=== PATIENT | female | born 1975 | race Caucasian/White ===

== ENCOUNTER → 2017-04-26 14:12 | Outpatient (CLI) | payer BC, SELFPAY ==
[2017-05-01 14:23] LABS: HPV Reflexed? NOT INDICATED
== END ==
PROVIDERS: Family Provider Family Medicine; PCP Family Medicine; Visit Provider Obstetrics & Gynecology
DX: Z12.4 Encounter for screening for malignant neoplasm of cervix (principal)
CPT/HCPCS: 88175; G0145

== ENCOUNTER → 2017-05-31 12:31 | Outpatient (CLI) | payer BC, SELFPAY ==
--- NOTE | 2017-05-31 12:34 | BI_ITS ---
MAMMOGRAPHY - BILATERAL SCREENING REASON FOR EXAM: Female, 42 years old. Routine annual screening examination. PERTINENT HISTORY: Aunt with breast cancer. TECHNIQUE: Digital bilateral breast thuan (3D mammographic acquisition) in the CC and MLO projections. 2-D mediolateral oblique (MLO) and craniocaudad (CC) views of both breasts were obtained. CAD: Full Field Digital Mammography with Computer Added Detection was performed. COMPARISON: Comparison is made with prior study dated November 06, 2015. FINDINGS: Breast Composition: The breasts are heterogeneously dense, which may obscure small masses. There are no dominant masses or suspicious calcifications. No other significant abnormalities are identified. There has been no significant change since the prior study. BI/SCREENING MAMM (CAD), BILAT IMPRESSION: Stable bilateral screening mammogram. Yearly follow-up mammogram recommended. (A) ASSESSMENT CATEGORY: BIRADS Category 1: Negative. A letter regarding these results will be sent to the patient by the facility within 30 days. Approximately 10% of breast cancers are not detected by mammography. A normal mammogram should not delay biopsy of a clinically suspicious abnormality. [id number] Electronically Signed: Theodore Duran MD at 15:36 EDT Tel [phone], Service support ,
== END ==
PROVIDERS: Family Provider Family Medicine; PCP Family Medicine; Visit Provider Obstetrics & Gynecology
DX: Z12.31 Encounter for screening mammogram for malignant neoplasm of breast (principal)
CPT/HCPCS: 77063; 77067

== ENCOUNTER → 2018-05-02 15:47 | Outpatient (CLI) | payer BC, SELFPAY ==
[2018-05-09 14:43] LABS: HPV Reflexed? NOT INDICATED
== END ==
PROVIDERS: Family Provider Family Medicine; PCP Family Medicine; Referring Provider Obstetrics & Gynecology; Visit Provider Obstetrics & Gynecology
DX: Z12.4 Encounter for screening for malignant neoplasm of cervix (principal)
CPT/HCPCS: 88175; G0145

== ENCOUNTER → 2018-06-06 13:49 | Outpatient (CLI) | payer BC, SELFPAY ==
--- NOTE | 2018-06-06 13:50 | BI_ITS ---
MAMMOGRAPHY - BILATERAL SCREENING REASON FOR EXAM: Female, 43 years old. Routine annual screening examination. PERTINENT HISTORY: Aunt with breast cancer. TECHNIQUE: Digital bilateral breast thuan (3D mammographic acquisition) in the CC and MLO projections. 2-D mediolateral oblique (MLO) and craniocaudad (CC) views of both breasts were obtained. CAD: Full Field Digital Mammography with Computer Added Detection was performed. COMPARISON: Comparison is made with prior study dated May 31, 2017 and November 06, 2015. FINDINGS: Breast Composition: The breasts are heterogeneously dense, which may obscure small masses. There are no dominant masses or suspicious calcifications. No other significant abnormalities are identified. There has been no significant change since the prior study. BI/SCREENING MAMM (CAD), BILAT IMPRESSION: Stable bilateral screening mammogram. Yearly follow-up mammogram recommended. (A) ASSESSMENT CATEGORY: BIRADS Category 1: Negative. A letter regarding these results will be sent to the patient by the facility within 30 days. Approximately 10% of breast cancers are not detected by mammography. A normal mammogram should not delay biopsy of a clinically suspicious abnormality. [id number] Electronically Signed: Theodore Duran, at 15:09 EDT , Service support ,
== END ==
PROVIDERS: Family Provider Family Medicine; PCP Family Medicine; Referring Provider Obstetrics & Gynecology; Visit Provider Obstetrics & Gynecology
DX: Z12.31 Encounter for screening mammogram for malignant neoplasm of breast (principal)
CPT/HCPCS: 77063; 77067

== ENCOUNTER → 2019-10-23 09:01 | Outpatient (CLI) | payer BC, SELFPAY ==
--- NOTE | 2019-10-23 09:03 | BI_ITS ---
MAMMOGRAPHY - BILATERAL SCREENING REASON FOR EXAM: Female, 44 years old. Routine annual screening examination. PERTINENT HISTORY: Aunt with breast cancer. TECHNIQUE: Digital bilateral breast sal (3D mammographic acquisition) in the CC and MLO projections. 2-D mediolateral oblique (MLO) and craniocaudad (CC) views of both breasts were obtained. CAD: Full Field Digital Mammography with Computer Added Detection was performed. COMPARISON: Comparison is made with prior study dated 06/06/2018 and 05/31/2017. FINDINGS: Breast Composition: The breasts are heterogeneously dense, which may obscure small masses. There are no dominant masses or suspicious calcifications. Stable small benign-appearing bilateral axillary lymph nodes. No other significant abnormalities are identified. There has been no significant change since the prior study. BI/SCREEN MAMM (CAD) W/SAL BILAT IMPRESSION: Stable bilateral screening mammogram. Yearly follow-up mammogram recommended. (A) ASSESSMENT CATEGORY: BIRADS Category 2: Benign. A letter regarding these results will be sent to the patient by the facility within 30 days. Approximately 10% of breast cancers are not detected by mammography. A normal mammogram should not delay biopsy of a clinically suspicious abnormality. [id number] Electronically Signed: Theodore Duran, at 10:11 EDT , Service support ,
== END ==
PROVIDERS: PCP Family Medicine; Referring Provider Obstetrics & Gynecology; Visit Provider Obstetrics & Gynecology
DX: Z12.31 Encounter for screening mammogram for malignant neoplasm of breast (principal)
CPT/HCPCS: 77063; 77067

== ENCOUNTER 2021-03-12 14:31 | Outpatient (CLI) | payer SELFPAY ==
[2021-03-19 19:53] LABS: HPV APTIMA, High Risk Negative (Negative)
== END 2021-03-12 23:59 | disposition short-term general hospital (02) ==
LOC: LABSPEC 14:45
PROVIDERS: PCP Family Medicine; Visit Provider Student in an Organized Health Care Education/Training Program
DX: Z12.4 Encounter for screening for malignant neoplasm of cervix (principal)
CPT/HCPCS: 87624; 88175; G0145

== ENCOUNTER 2021-03-24 13:36 | Outpatient (CLI) | payer SELFPAY ==
--- NOTE | 2021-03-24 13:43 | BI_ITS ---
MAMMOGRAPHY - BILATERAL SCREENING REASON FOR EXAM: Female, 45 years old. Routine annual screening examination. PERTINENT HISTORY: Aunt with breast cancer. TECHNIQUE: Digital bilateral breast sal (3D mammographic acquisition) in the CC and MLO projections. 2-D mediolateral oblique (MLO) and craniocaudad (CC) views of both breasts were obtained. CAD: Full Field Digital Mammography with Computer Added Detection was performed. COMPARISON: Comparison is made with prior study dated 10/23/2019 and 06/06/2018. FINDINGS: Breast Composition: The breasts are heterogeneously dense, which may obscure small masses. There are no dominant masses or suspicious calcifications. No other significant abnormalities are identified. There has been no significant change since the prior study. BI/SCRN MAMM (CAD)W/SAL BILAT IMPRESSION: Stable bilateral screening mammogram. Yearly follow-up mammogram recommended. (A) ASSESSMENT CATEGORY: BIRADS Category 1: Negative. A letter regarding these results will be sent to the patient by the facility within 30 days. Approximately 10% of breast cancers are not detected by mammography. A normal mammogram should not delay biopsy of a clinically suspicious abnormality. [id number] Electronically Signed: Theodore Duran MD at 14:20 EST ,
== END 2021-03-24 23:59 | disposition short-term general hospital (02) ==
PROVIDERS: PCP Family Medicine; Visit Provider Student in an Organized Health Care Education/Training Program
DX: Z12.31 Encounter for screening mammogram for malignant neoplasm of breast (principal); Z80.3 Family history of malignant neoplasm of breast
CPT/HCPCS: 77063; 77067

== ENCOUNTER → 2024-06-19 | Outpatient (CLI) | payer SELFPAY ==
[2024-06-24 16:08] LABS: HPV APTIMA, High Risk Negative (Negative)
== END | disposition home or self-care (01) ==
PROVIDERS: PCP Family Medicine; Referring Provider Family Medicine; Visit Provider Family Medicine
DX: Z12.4 Encounter for screening for malignant neoplasm of cervix (principal)
CPT/HCPCS: 88175; G0145

== ENCOUNTER → 2024-07-03 | Outpatient (CLI) | payer SELFPAY ==
--- NOTE | 2024-07-03 15:40 | BI_ITS ---
EXAM: SCRN MAMM (CAD)W/SAL BILAT DATE: 07/03/2024 CLINICAL HISTORY: F, Age 49 y/o , SCREENING BREAST CANCER RISK ASSESSMENT: Not reported TECHNIQUE: Bilateral screening digital breast tomosynthesis with 2D and 3D images. Computer aided detection. COMPARISON: Prior exam(s) were compared FINDINGS: TISSUE DENSITY: The breast tissue is heterogenously dense, which may obscure small masses. Bilateral Breast Mammographic Findings: No suspicious masses, calcifications or other abnormalities are identified. BI/SCRN MAMM (CAD)W/SAL BILAT IMPRESSION: OVERALL FINAL ASSESSMENT: BIRADS 1 NEGATIVE RECOMMENDATION: Routine annual follow-up in 1 Year A letter with findings and recommendations will be mailed to the patient. Reading Location: [id number]
== END | disposition home or self-care (01) ==
PROVIDERS: PCP Family Medicine
DX: Z12.31 Encounter for screening mammogram for malignant neoplasm of breast (principal)
CPT/HCPCS: 77063; 77067

== ENCOUNTER 2024-10-11 11:05 | Day surgery (SDC) | payer SELFPAY ==
[2024-10-11] VITALS (7 sets, daily range): BP systolic 85–100; BP diastolic 58–80; PULSE 56–88; RESP 14–18; TEMP 36.1–36.6; O2SAT 94–100; BMI 22.8
--- NOTE | 2024-10-11 11:21 | PCM.HP.STD ---
HPI - General General Date of Admission: 10/11/24 Date of Service: 10/11/24 HPI Narrative LILLIAM ARTEAGA, is a 49 F who presents for a Chief Complaint: screening colonoscopy Pt has no GI symptoms. She has a bm sporadically typically every couple days which has always been her normal. She has never had a colonoscopy before. She has two cousins who of colon cancer in their 30s. [facility] Medical History Wears glasses Non-smoker History of edema Allergy/AdvReac Type Severity Reaction Status Date / Time No Known Allergies Allergy Verified 10/10/24 15:48 Surgical History Hx of skin graft Hx of foot surgery Social History Smoking Status: Never smoker ROS Constitutional Constitutional: Denies fatigue, fever(s), poor appetite, weight gain or weight loss Gastrointestinal Gastrointestinal: Denies belching, bloating, change in bowel habits, change in stool character, chewing difficulty, coffee ground emesis, constipation, cramping, diarrhea, dyspepsia, dysphagia, early satiety, excessive flatus, fecal incontinence, heartburn, hematemesis, hematochezia, hemorrhoids, loose stools, melena, nausea, odynophagia, rectal bleeding, tenesmus, vomiting or weight changes Physical Exam Const alert, oriented x3, no apparent distress and healthy appearing General Appearance: cooperative GI normal to inspection, nondistended, normoactive bowel sounds, soft to palpation, non-tender and non-distended Percussion: normal to percussion Rectal Exam: deferred Assessment & Plan Assessment/Plan (1) Screening for colon cancer: PLAN: Assessment and Plan Assessment and Plan (1) Screening for colon cancer: Status: Acute Plan: Lilliam is a healthy 49 yo female pt here today for screening colonoscopy. Pt has never had a screening colonoscopy. She denies any GI symptoms. She endorses a distant family hx of colon cancer in her cousins who in their 30s from complications of colon cancer. SHe will undergo screening colonoscopy. I have explained the procedure, preoperation and risks. She was agreeable to proceed. -Screening colonposcy -f/u after procedure
--- NOTE | 2024-10-11 11:31 | PCM.PRE.AN2 ---
ASA Classification* ASA Classification ASA Classification: 1 Assessment & Plan Anesthesia* Anesthesia Assessment Anesthesia Assessment: Discussed sedation and/or anesthesia options, risks, benefits, and alternatives with patient/parents/legal guardian/POA. Questions invited. The patient/parents/legal guardian/POA seems to understand and agrees to proceed with anesthesia plan. Reviewed the physical assessment, medical history, allergy history and patient home medications list prior to surgery/procedure/anesthetic and documented any changes. Performed airway and anesthesia risk assessments. Anesthesia Type Anesthesia Type: MAC Anesthesia Focused Assessment* Oxygen Delivery Method: Room Air Airway Assessment Mouth opens: >3 cm Mallampati Score: I Teeth Condition: Intact Neck Range of motion (ROM): Full ROM Labs Anesthesia Preop lab: CBC CHEMISTRY COAG Urine Test Pending 10/11/24 11:19 10/11/24 Pre-Assessment Diagnosis/Proposed Procedure Planned Operative Procedure(s): CSCOPE Anesthesia History Anesthesia History - outside salesperson: Anesthesia History - outside salesperson Hx Hospitalization No 10/10/24 15:49 Any Problems With Anesthesia No 10/10/24 15:49 Cholinesterase deficiency No 10/10/24 15:49 You/Your Family Experience No 10/10/24 15:49 fever (hyperthermia) with Relationship Recent Exposure to Contagious Disease Does patient have nerve No 10/10/24 15:49 stimulator Patient instructed to have device shut off --Does patient have Pacemaker or ICD? When Was Last Pacemaker Check QUESTION #4 FULL TEXT: You/Your Family Experience fever (hyperthermia) with Anesthesia Last Oral Intake Last Oral intake: Last Oral Intake NPO since Meds taken in AM with sips of water? Meds patient instructed to take am of surgery PONV PONV - outside salesperson: PONV - outside salesperson Female Yes 10/10/24 15:49 HX of Motion Sickness No 10/10/24 15:49 HX of N/V After Surgery No 10/10/24 15:49 Non-Smoker Yes 10/10/24 15:49 Duration of Surgery greater No 10/10/24 15:49 than 60 minutes Number of Risk Factors 2 10/10/24 15:49 PONV Score Moderate Risk 10/10/24 15:49 Respiratory Assessment Respiratory Assessment - outside salesperson: Respiratory Tract Infection Hx - outside salesperson Hx Respiratory Tract Infection No 10/10/24 15:49 STOP Sleep Apnea STOP Sleep Apnea - outside salesperson: STOP Sleep Apnea - outside salesperson Hx Hypertension No 10/10/24 15:49 Hx Sleep Apnea No 10/10/24 15:49 CPAP BIPAP Do you snore loudly (louder No 10/10/24 15:49 than talking or can be heard Do you often feel tired/ No 10/10/24 15:49 fatigued/ sleepy during daytime? Has anyone observed you stop No 10/10/24 15:49 breathing during sleep? STOP Results Negative 10/10/24 15:49 QUESTION #5 FULL TEXT : Do you snore loudly (louder than talking or can be heard through closed doors)? 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 Specify any problems Hx of Preganancy in last 3 No 10/10/24 15:49 Months Nurse Filling Out Transfusion DSCHRIBER 10/10/24 15:49 & Questions: Date: 10/10/24 10/10/24 15:49 Time: 15:50 10/10/24 15:49 Patient unable to answer at this time (ie. confused, unrespo /Reproduction History /Reproductive History - outside salesperson: /Reproductive Hx- outside salesperson Hx Now No 10/10/24 15:49 Gestational Age (in weeks): EDC: Hx Hx Para Hx Section SAB No 10/10/24 15:49 Active Medications Active Medications: Current Medications Generic Name Dose Route Start Last Admin Trade Name Freq PRN Reason Stop Dose Admin Lactated Ringer's 1,000 mls @ 15 mls/hr 10/11/24 11:15 IV .Q48H JUAN PFSH Medical History Wears glasses Non-smoker History of edema Allergy/AdvReac Type Severity Reaction Status Date / Time No Known Allergies Allergy Verified 10/11/24 11:26 Surgical History Hx of skin graft Hx of foot surgery Social History Smoking Status: Never smoker Review of Systems (Anesthesia) ROS Narrative System reviewed and no additional complaints, except as documented.
[2024-10-11] MEDS: Lactated Ringers 1,000 ML 15 ML IV (11:38)
--- NOTE | 2024-10-11 12:00 | COLBX_PTH ---
PATIENT: LILLIAM ARTEAGA LOC: EN U#:[id number] AGE/SX: 49/F ROOM: RE10/11/[address]: Dr. Johnny Caban DO : 1975 BED: DIS: 10/11/2024 SPEC #: [id number] RECD: 10/11/24 13:17 STATUS: MARCO A JIMENA #: [id number] JHONATHAN: 10/11/24 12:[address]: Johnny Caban DEPT: SURGICAL PATHOLOGY RECD BY: Diaz Guo ENTERED: 10/11/24 13:59 SP TYPE: COLON BX ELO DR: Dr. Presley Escobar MD Tissues: A - Ascending colon Procedures: Surgery Specimen Level IV HEADER OPERATION: Colonoscopy, polypectomy PRE-OP DIAGNOSIS: Screening colonoscopy TISSUE SUBMITTED: A- Ascending colon polyp MICROSCOPIC DIAGNOSIS A. Ascending colon, polyp, biopsy: - Tubular adenoma. MICROSCOPIC DESCRIPTION Slides are reviewed. GROSS DESCRIPTION A. Received in fixative is one container labeled with the patient's name and designated Ascending colon polyp. The specimen consists of multiple irregular fragments of light cruz soft tissue that in aggregate measure 1.7 x 0.4 x 0.1 cm. The specimen is totally submitted in one cassette. MI 10/11/2024 CPT:[id number]
[2024-10-11 12:05] LABS: Internal QC Validated? YES +Cl - CLEAR BKGD; Pregnancy, Serum, hCG Quali. NEGATIVE Negative; Record Kit Lot#, Serum Preg. 962302
--- NOTE | 2024-10-11 12:32 | PCM.POST.ANE ---
Anesthesia: Postop Eval I Current Vital Signs Temperature: 98 F Pulse Rate: 70 Blood Pressure: 100/73 Respiratory Rate: 14 Pulse Ox: 100 Oxygen Delivery Method: Room Air Assessment Airway patent: Yes Spontaneous unlabored respirations: Yes Mental status: Awake and Calm nausea: No Vomiting: No Anesthesia Complication: No Fluid Hydration Crystalloid volume administer (ml): 500 Total IV fluid infused: 500 Progress Note Anesthesia document: Postop Eval 1 completed: Yes
--- NOTE | 2024-10-11 12:34 | POSTOPAN2_ITS ---
Anesthesia Postop Eval I Sum Postop Eval Completion status Anesthesia document: Postop Eval 1 completed: Yes Anesthesia Postop Eval I Summary Anesthesia Postop Eval I Summary: Anesthesia Postop Eval I: Assessment Summary Airway patent Yes 10/11/24 12:34 UTILITY [email or web address] Spontaneous unlabored Yes 10/11/24 12:34 UTILITY [email or web address].MDOT respirations Mental status Awake,Calm 10/11/24 12:34 UTILITY [email or web address].MDOT nausea No 10/11/24 12:34 UTILITY TECH.MDOT Vomiting No 10/11/24 12:34 UTILITY [email or web address].[email or web address] Anesthesia Postop Eval I: Fluid Summary Crystalloid volume administer 500 10/11/24 12:34 UTILITY TECH.MDOT (ml) Colloids volume administered ( ml) Blood Product volume administered (ml) Total IV fluid infused 500 10/11/24 12:34 UTILITY [email or web address].[email or web address] Anesthesia Postop Eval I: Summary Notes Anesthesia Complication No 10/11/24 12:34 UTILITY [email or web address].[email or web address] Anesthesia Complication Comment: Post-operative progress note
--- NOTE | 2024-10-11 12:34 | PCM.POSTANE2 ---
Anesthesia Postop Eval I Sum Postop Eval Completion status Anesthesia document: Postop Eval 1 completed: Yes Anesthesia Postop Eval I Summary Anesthesia Postop Eval I Summary: Anesthesia Postop Eval I: Assessment Summary Airway patent Yes 10/11/24 12:34 FIELD [email or web address].[email or web address] Spontaneous unlabored Yes 10/11/24 12:34 FIELD REP.MDOT respirations Mental status Awake,Calm 10/11/24 12:34 FIELD REP.MDOT nausea No 10/11/24 12:34 FIELD REP.MDOT Vomiting No 10/11/24 12:34 FIELD REP.MDOT Anesthesia Postop Eval I: Fluid Summary Crystalloid volume administer 500 10/11/24 12:34 FIELD REP.MDOT (ml) Colloids volume administered ( ml) Blood Product volume administered (ml) Total IV fluid infused 500 10/11/24 12:34 FIELD REP.MDOT Anesthesia Postop Eval I: Summary Notes Anesthesia Complication No 10/11/24 12:34 FIELD REP.MDOT Anesthesia Complication Comment: Post-operative progress note
--- NOTE | 2024-10-11 12:36 | POSTOPAN2_ITS ---
Anesthesia Postop Eval I Sum Postop Eval Completion status Anesthesia document: Postop Eval 1 completed: Yes Anesthesia Postop Eval I Summary Anesthesia Postop Eval I Summary: Anesthesia Postop Eval I: Assessment Summary Airway patent Yes 10/11/24 12:34 STRIPPER AND OPAQUER APPRENTICE.[email or web address] Spontaneous unlabored Yes 10/11/24 12:34 STRIPPER AND OPAQUER APPRENTICE.MDOT respirations Mental status Awake,Calm 10/11/24 12:34 STRIPPER AND OPAQUER APPRENTICE.MDOT nausea No 10/11/24 12:34 STRIPPER AND OPAQUER APPRENTICE.MDOT Vomiting No 10/11/24 12:34 STRIPPER AND OPAQUER APPRENTICE.MDOT Anesthesia Postop Eval I: Fluid Summary Crystalloid volume administer 500 10/11/24 12:34 STRIPPER AND OPAQUER APPRENTICE.MDOT (ml) Colloids volume administered ( ml) Blood Product volume administered (ml) Total IV fluid infused 500 10/11/24 12:34 STRIPPER AND OPAQUER APPRENTICE.MDOT Anesthesia Postop Eval I: Summary Notes Anesthesia Complication No 10/11/24 12:34 STRIPPER AND OPAQUER APPRENTICE.MDOT Anesthesia Complication Comment: Post-operative progress note Anesthesia: Postop Eval II Evaluation Mental status: Awake and Calm Pain Level: 0 nausea: Yes Vomiting: Yes Complications Anesthesia Complication: No
--- NOTE | 2024-10-11 12:36 | PCM.POSTANE2 ---
Anesthesia Postop Eval I Sum Postop Eval Completion status Anesthesia document: Postop Eval 1 completed: Yes Anesthesia Postop Eval I Summary Anesthesia Postop Eval I Summary: Anesthesia Postop Eval I: Assessment Summary Airway patent Yes 10/11/24 12:34 VIDEO [email or web address] Spontaneous unlabored Yes 10/11/24 12:34 VIDEO [email or web address] respirations Mental status Awake,Calm 10/11/24 12:34 VIDEO [email or web address].[email or web address] nausea No 10/11/24 12:34 VIDEO [email or web address].MDOT Vomiting No 10/11/24 12:34 VIDEO [email or web address].[email or web address] Anesthesia Postop Eval I: Fluid Summary Crystalloid volume administer 500 10/11/24 12:34 VIDEO [email or web address].MDOT (ml) Colloids volume administered ( ml) Blood Product volume administered (ml) Total IV fluid infused 500 10/11/24 12:34 VIDEO [email or web address].[email or web address] Anesthesia Postop Eval I: Summary Notes Anesthesia Complication No 10/11/24 12:34 VIDEO [email or web address].[email or web address] Anesthesia Complication Comment: Post-operative progress note Anesthesia: Postop Eval II Evaluation Mental status: Awake and Calm Pain Level: 0 nausea: Yes Vomiting: Yes Complications Anesthesia Complication: No
--- NOTE | 2024-10-11 12:40 | OP.PROVAT_ITS ---
10/11/2024 Delroy Escobar [address] [place] [address] Re : Colonoscopy procedure for Hanny Lowe Dear Dr. Escobar This procedure was performed on Friday, October 11, 2024. My impressions and recommendations are as follows: Impressions : - One 10 mm polyp in the ascending colon, removed with a hot snare. Resected and retrieved. - The examination was otherwise normal on direct and retroflexion views. Recommendations : - Discharge patient to home. - Resume previous diet. - Continue present medications. - Await pathology results. - Repeat colonoscopy in 5 years for surveillance. My findings are described in the full procedure note, which is enclosed. If I can be of further assistance, please feel free to contact me at . Sincerely, Johnny Caban, 10/11/2024 12:40:27 PM This report has been signed electronically.
--- NOTE | 2024-10-11 12:40 | OP.COLON_ITS ---
Patient Name: Hanny Lowe Procedure Date: 10/11/2024 11:24 AM Date of : 1975 Age: 49 Procedure: Colonoscopy Indications: Screening for colorectal malignant neoplasm Providers: Johnny Caban DO Medicines: Monitored Anesthesia Care Patient Profile: This is a 49 year old female. Refer to note in patient chart for documentation of history and physical. Last Colonoscopy: none. The patient's first colonoscopy is today. Complications: No immediate complications. Procedure: Pre-Anesthesia Assessment: - Prior to the procedure, a History and Physical was performed, and patient medications and allergies were reviewed. The patient is competent. The risks and benefits of the procedure and the sedation options and risks were discussed with the patient. All questions were answered and informed consent was obtained. Patient identification and proposed procedure were verified by the physician in the pre-procedure area. Mental Status Examination: alert and oriented. Airway Examination: normal oropharyngeal airway and neck mobility. Respiratory Examination: clear to auscultation. CV Examination: normal. Prophylactic Antibiotics: The patient does not require prophylactic antibiotics. Prior Anticoagulants: The patient has taken no anticoagulant or antiplatelet agents except for NSAID medication. ASA Grade Assessment: II - A patient with mild systemic disease. After reviewing the risks and benefits, the patient was deemed in satisfactory condition to undergo the procedure. The anesthesia plan was to use monitored anesthesia care (MAC). Immediately prior to administration of medications, the patient was re-assessed for adequacy to receive sedatives. The heart rate, respiratory rate, oxygen saturations, blood pressure, adequacy of pulmonary ventilation, and response to care were monitored throughout the procedure. The physical status of the patient was re-assessed after the procedure. After I obtained informed consent, the scope was passed under direct vision. Throughout the procedure, the patient's blood pressure, pulse, and oxygen saturations were monitored continuously. The Colonoscope was introduced through the anus and advanced to the cecum, identified by appendiceal orifice and ileocecal valve. The colonoscopy was performed without difficulty. The patient tolerated the procedure well. The quality of the bowel preparation was adequate. The ileocecal valve, appendiceal orifice, and rectum were photographed. Scope In: 12:17:03 PM Scope Withdrawal Time 0 hours 9 minutes 18 seconds Scope Out: 12:31:36 PM Total Procedure Duration Time 0 hours 14 minutes 33 seconds Findings: The perianal and digital rectal examinations were normal. A 10 mm polyp was found in the ascending colon. The polyp was sessile. The polyp was removed with a hot snare. Resection and retrieval were complete. Verification of patient identification for the specimen was done. Estimated blood loss was minimal. The exam was otherwise without abnormality on direct and retroflexion views. Impression: - One 10 mm polyp in the ascending colon, removed with a hot snare. Resected and retrieved. - The examination was otherwise normal on direct and retroflexion views. Recommendation: - Discharge patient to home. - Resume previous diet. - Continue present medications. - Await pathology results. - Repeat colonoscopy in 5 years for surveillance. Procedure Code(s): --- Professional --- 51216, Colonoscopy, flexible; with removal of tumor(s), polyp(s), or other lesion(s) by snare technique CPT copyright 2021 [employer] [place] [employer]. All rights reserved. The codes documented in this report are preliminary and upon collection administrator review may be revised to meet current compliance requirements. Johnny Caban DO 10/11/2024 12:40:27 PM This report has been signed electronically. Number of Addenda: 0 Note Initiated On: 10/11/2024 11:24 AM
--- NOTE | 2024-10-11 12:57 | POSTOPAN2_ITS ---
Anesthesia Postop Eval I Sum Postop Eval Completion status Anesthesia document: Postop Eval 1 completed: Yes Anesthesia Postop Eval I Summary Anesthesia Postop Eval I Summary: Anesthesia Postop Eval I: Assessment Summary Airway patent Yes 10/11/24 12:34 SCREEN VENT BINDER.MDOT Spontaneous unlabored Yes 10/11/24 12:34 SCREEN VENT BINDER.MDOT respirations Mental status Awake,Calm 10/11/24 12:36 SCREEN VENT BINDER.MDOT nausea Yes 10/11/24 12:36 SCREEN VENT BINDER.MDOT Vomiting Yes 10/11/24 12:36 SCREEN VENT BINDER.MDOT Anesthesia Postop Eval I: Fluid Summary Crystalloid volume administer 500 10/11/24 12:34 SCREEN VENT BINDER.MDOT (ml) Colloids volume administered ( ml) Blood Product volume administered (ml) Total IV fluid infused 500 10/11/24 12:34 SCREEN VENT BINDER.MDOT Anesthesia Postop Eval I: Summary Notes Anesthesia Complication No 10/11/24 12:36 SCREEN VENT BINDER.MDOT Anesthesia Complication Comment: Post-operative progress note Anesthesia: Postop Eval II Evaluation Mental status: Awake and Calm Pain Level: 0 nausea: No Vomiting: No Complications Anesthesia Complication: No
--- NOTE | 2024-10-11 12:57 | PCM.POSTANE2 ---
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 Spontaneous unlabored Yes 10/11/24 12:34 HANDBAG FRAMES INSPECTOR.MDOT respirations Mental status Awake,Calm 10/11/24 12:36 HANDBAG FRAMES INSPECTOR.MDOT nausea Yes 10/11/24 12:36 HANDBAG FRAMES INSPECTOR.MDOT Vomiting Yes 10/11/24 12:36 HANDBAG FRAMES INSPECTOR.MDOT Anesthesia Postop Eval I: Fluid Summary Crystalloid volume administer 500 10/11/24 12:34 HANDBAG FRAMES INSPECTOR.MDOT (ml) Colloids volume administered ( ml) Blood Product volume administered (ml) Total IV fluid infused 500 10/11/24 12:34 HANDBAG FRAMES INSPECTOR.MDOT Anesthesia Postop Eval I: Summary Notes Anesthesia Complication No 10/11/24 12:36 HANDBAG FRAMES INSPECTOR.MDOT Anesthesia Complication Comment: Post-operative progress note Anesthesia: Postop Eval II Evaluation Mental status: Awake and Calm Pain Level: 0 nausea: No Vomiting: No Complications Anesthesia Complication: No
== END 2024-10-11 13:24 | disposition home or self-care (01) ==
LOC: EN 11:07 → AC 11:08
PROVIDERS: Anesthesiology; PCP Family Medicine; Referring Provider Family Medicine; Visit Provider Internal Medicine Gastroenterology
PROC: 0DJD8ZZ Inspection of Lower Intestinal Tract, Via Natural or Artificial Opening Endoscopic (ICD-10-PCS; CPT 45378; principal; 2024-10-11 11:55)
DX: Z12.11 Encounter for screening for malignant neoplasm of colon (principal); D12.2 Benign neoplasm of ascending colon; Z80.0 Family history of malignant neoplasm of digestive organs
CPT/HCPCS: 45385; 81025; 84703; 88305